=== PATIENT | female | born 1990 | race Caucasian/White ===

== ENCOUNTER 2016-07-04 18:10 | Emergency (ER) | payer OTHER ==
[2016-07-04] MEDS ORDERED: Sodium Chloride 0.9% 1000 ML 1,000 ML IV STA ×2 (19:01→20:54)
[2016-07-04] MEDS ORDERED: TORAdol 30 mg Injection IV ONE (19:01)
[2016-07-04] MEDS ORDERED: BENADRYL 50 MG/ML IV ONE (19:01)
[2016-07-04] MEDS ORDERED: PROVENTIL 2.5 MG/3 ML NEB IH ONE ×2 (19:05→19:41)
--- NOTE | 2016-07-04 19:05 | ERPHSYRPT ---
- History of Present Illness Source: patient, family (father) Patient Subjective Stated Complaint: PT REPORTS COUGH-SINUS PRESSURE-SINUS DRAINAGE-ALLL OVER BODY ACHES BEGINNING 2 MONTHS-STATES SHE HAS CHILLS-PT PLACED ON ANTIBIOTICS 2 DAYS AGO Triage Nursing Assessment: PT PALE WARM ET [id number] NONLABORED- INTERMITTANT LIGHT COUGH NOTED THROUGHOUT TRIAGE-DENIES DIFFICULTY WITH URINATION OR BOWELS DENIES N/V/D Severity: moderate Hx Tetanus, Diphtheria Vaccination/Date Given: Yes Hx Influenza Vaccination/Date Given: Yes Hx Pneumococcal Vaccination/Date Given: No Immunizations Up to Date: Yes <SUMIT GARCIA - Last Filed: 07/04/16 19:02> <ROSSY ANNA - Last Filed: 07/04/16 20:03> - History of Present Illness Time Seen by Provider: 07/04/16 18:53 Physician History: CC: fever Hx:25 y/o healthy patient of Dr Jc. She has rhinorrhea, cough, myalgias , aches, and feels bad. [place]roquois like bronchospasm yesterday. She has a son with similar illness. No V/D. No rash. She saw [facility] and was placed on abtx, she thinks omnicef. (SUMIT GARCIA) Allergies/Adverse Reactions: No Known Drug Allergies Allergy (Verified 07/04/16 18:33) Home Medications: Control 1 implant IM UD 07/04/16 [History] - Review of Systems Constitutional: Fever, Chills, Fatigue, Malaise, Weakness Eyes: No Symptoms Ears, Nose, & Throat: Nose Congestion, Throat Pain Respiratory: Cough Abdominal/Gastrointestinal: No Vomiting, No Diarrhea Skin: No Rash Neurological: Headache All Other Systems: Reviewed and Negative <SUMIT GARCIA - Last Filed: 07/04/16 19:02> - Past Medical History Pertinent Past Medical History: Yes Psycho-Social History: Depression - Past Surgical History Past Surgical History: No - Social History Smoking Status: Former smoker Exposure to second hand smoke: Yes Drug Use: none Patient Lives Alone: No - Female History Hx Last Menstrual Period: IMPLANT <SUMIT GARCIA - Last Filed: 07/04/16 19:02> - Physical Exam General Appearance: alert, thin Eye Exam: bilateral eye: PERRL, EOMI Ear Exam: bilateral ear: TM normal Nasal Exam: normal inspection Throat Exam: normal, tonsillar exudate Neck Exam: normal inspection, non-tender, supple Cardiovascular/Respiratory Exam: normal breath sounds, regular rate/rhythm, heart sounds normal Abdominal Exam: non-tender, soft Neurologic Exam: alert, oriented x 3, cooperative Skin Exam: warm, dry, No rash SpO2 Interpretation: normal SpO2: 100 Oxygen Delivery: Room Air <JOESSUMIT Leggett - Last Filed: 07/04/16 19:02> - Course Nursing assessment & vital signs reviewed: Yes <SUMIT GARCIA - Last Filed: 07/04/16 19:02> <SUMIT GARCIA - Last Filed: 07/04/16 19:02> - Progress Counseled pt/family regarding: lab results, diagnosis, need for follow-up, rad results <ROSSY ANNA - Last Filed: 07/04/16 20:03> - Progress Progress Note: 07/04/16 19:04 This is likely viral syndrome. She feels poorly despite her meds. She wants to have treatments and testing. REport to Dr Anna for further care and disposition. (SUMIT GARCIA) 07/04/16 20:01 patient is feeling much better, all lab results discussed they are all normal with in range (ROSSY ANNA) <SUMIT GARCIA - Last Filed: 07/04/16 19:02> - Departure Time of Disposition: 20:02 Departure Disposition: Home Critical Care Time: No <ROSSY ANNA - Last Filed: 07/04/16 20:03> - Departure Clinical Impression: Viral upper respiratory infection Condition: Stable Referrals: APRYL JC MD [Primary Care Provider] - Instructions: Viral Upper Respiratory Infection -- Adult Additional Instructions: UPPER RESPIRATORY INFECTIONS 1. The signs and symptoms of a cold may last up to 10 days. These illnesses are due to viruses which are not treatable with antibiotics. 2. The following suggestions can aid in recovery and to minimize symptoms: A. Increase fluid intake. B. Acetaminophen or Ibuprofen as directed. C. Avoid smoking environments as this will increase the risk of developing pneumonia. D. For children, may use a cool mist vaporizer in the child's room. 3. Contact your Family Physician if you note: A. Persisten fever >103 for more than 3 days B. Breathing difficulty C. Productive cough of yellow/green sputum D. Illness greater than 7 days E. Persistent vomiting F. Stiff neck Please follow the instructions given to you. Please take your medication as prescribed if given. If symptoms recur or get worse, come back to the emergency room if you cannot reach your primary care physician, or call your primary care physician for an appointment. Again if your symptoms get worse, come back to the emergency room. Thanks for visiting emergency room, and let us take care of you.
[2016-07-04 19:22] LABS: BASOPHIL % 0.1 % (0.0-0.4); Eosinophil % 0.1 % (0.00-5.0); Granulocytes % 74.2 % (36.0-66.0); Mean Corpuscular Hemoglobin 29.9 pg (26-32); Mean Platelet Volume 10.1 fl (6-9.5); Monocytes % 10.6 % (0.0-12.0); Platelet Count 201 K/mm3 (150-450); Red Blood Count 4.01 M/mm3 (4.1-5.4); Red Cell Distribution Width 12.3 % (11.5-14.0); White Blood Count 9.1 K/mm3 (4.0-10.5)
[2016-07-04] MEDS ORDERED: Sodium Chloride 0.9% 1000 ML 1,000 ML ONE ×2 (19:25→20:55)
[2016-07-04] MEDS ORDERED: TORAdol 30 mg Injection ONE (19:25)
[2016-07-04] MEDS ORDERED: BENADRYL 50 MG/ML ONE (19:25)
[2016-07-04 19:45] LABS: ALBUMIN 3.8 g/dL (3.4-5.0); ALKALINE PHOSPHATASE 82 U/L (46-116); ANION GAP 16.1 MEQ/L (5-15); BILIRUBIN,TOTAL 0.4 mg/dL (0.2-1.0); BLOOD UREA NITROGEN 11 mg/dL (9-20); CHLORIDE 99 mEq/L (98-107); Carbon Dioxide 23.3 mEq/L (21-32); Glucose 77 MG/DL (70-110); Potassium 3.5 mEq/L (3.5-5.1); SGOT/AST 17 U/L (15-37); SGPT/ALT 11 U/L (12-78); SODIUM 135 mEq/L (136-145); Total Protein 8.1 gm/dL (6.4-8.2)
[2016-07-04] MEDS ORDERED: TYLENOL EXTRA STRENGTH 500 MG PO STA (20:55)
[2016-07-04] MEDS ORDERED: TYLENOL EXTRA STRENGTH 500 MG ONE (21:00)
[2016-07-04 21:52] VITALS: O2SAT 98
[2016-07-04 22:39] VITALS: BP 114/70; PULSE 109
--- NOTE | 2016-07-05 08:42 | XRAY ---
Indication: Cough. Comparison: None PA/lateral chest demonstrates normal heart, lungs, and bony thorax.
== END 2016-07-04 22:20 | disposition home or self-care (01) ==
LOC: ED 18:10
DX: J06.9 Acute upper respiratory infection, unspecified (principal); B34.9 Viral infection, unspecified
CPT/HCPCS: 36000; 36415; 71020; 80053; 84703; 85025; 87070; 87430; 87631; 94640; 96360; 96365; 96375; 99283; J1200; J1885

== ENCOUNTER 2023-10-29 05:18 | Emergency (ER) | payer OTHER ==
[2023-10-29 05:32] VITALS: TEMP 97.7
--- NOTE | 2023-10-29 05:53 | ERPHSYRPT ---
- History of Present Illness Time Seen by Provider: 10/29/23 05:40 Historian: patient Exam Limitations: no limitations Patient Subjective Stated Complaint: vomiting, diarrhea, LLQ pain Triage Nursing Assessment: pt ambulatory from wheelchair to cot by self without assistance, pt alert and oriented x3, pt pale, continously moaning, pt c/o LLQ pain since 0330 and vomiting and diarrhea since yesterday, last BM was today, pt refused to auscultate bowel sounds Physician History: Patient a 33-year-old female presents to emergency department for evaluation of left lower quadrant abdominal pain. Patient states she awoke with the pain today at approximately 3:30 AM. Patient states pain is similar to the pain experienced during a urinary tract infection. Patient advises that her symptoms actually started yesterday with nausea vomiting and diarrhea. Patient is nauseous. Pain described as an ache that is localized to the left lower quadrant. Pain tends to radiate towards her back. Symptoms are constant. Symptoms are moderate in intensity. Movement and palpation to the left lower quadrant per reproduces pain. Significant other at bedside. They voiced no other complaints or concerns at this time. Portions of this note were created with voice recognition technology. There may be grammatical, spelling, punctuation or sound alike errors Timing/Duration: yesterday Activities at Onset: none Quality: aching Abdominal Pain Onset Location: LLQ Pain Radiation: no radiation Severity of Pain-Max: moderate Severity of Pain-Current: moderate Modifying Factors: Improves With: nothing Associated Symptoms: denies symptoms Previous symptoms: no prior history Allergies/Adverse Reactions: No Known Drug Allergies Allergy (Verified 10/29/23 05:24) Home Medications: Control 1 implant IM UD 07/04/16 [History] Venlafaxine HCl [Effexor Xr] 75 mg PO DAILY 10/29/23 [History] Hx Tetanus, Diphtheria Vaccination/Date Given: Yes Hx Influenza Vaccination/Date Given: Yes Hx Pneumococcal Vaccination/Date Given: No Travel Risk - International Travel Have you traveled outside of the country in past 3 weeks: No - Emerging Infectious Disease Are you exhibiting symptoms associated with any current EIDs: Yes Symptoms: Abdominal Pain, Diarrhea, Vomitting - Review of Systems Constitutional: No Symptoms, No Fever, No Chills Eyes: No Symptoms Ears, Nose, & Throat: No Symptoms Respiratory: No Symptoms, No Cough, No Dyspnea Cardiac: No Symptoms, No Chest Pain, No Edema, No Syncope Abdominal/Gastrointestinal: No Symptoms, No Abdominal Pain, No Nausea, No Vomiting, No Diarrhea Genitourinary Symptoms: No Symptoms, No Dysuria Musculoskeletal: No Symptoms, No Back Pain, No Neck Pain Skin: No Symptoms, No Rash Neurological: No Symptoms, No Dizziness, No Focal Weakness, No Sensory Changes Psychological: No Symptoms Endocrine: No Symptoms Hematologic/Lymphatic: No Symptoms Immunological/Allergic: No Symptoms All Other Systems: Reviewed and Negative - Past Medical History Pertinent Past Medical History: Yes Neurological History: No Pertinent History ENT History: No Pertinent History Cardiac History: No Pertinent History Respiratory History: No Pertinent History Endocrine Medical History: No Pertinent History Musculoskeletal History: No Pertinent History GI Medical History: No Pertinent History History: No Pertinent History Psycho-Social History: Depression Female Reproductive Disorders: No Pertinent History - Past Surgical History Past Surgical History: No Neuro Surgical History: No Pertinent History Cardiac: No Pertinent History Respiratory: No Pertinent History Gastrointestinal: No Pertinent History Genitourinary: No Pertinent History Musculoskeletal: No Pertinent History Female Surgical History: No Pertinent History - Female History Hx Last Menstrual Period: unk Hx Now: No - Social History Smoking Status: Former smoker Exposure to second hand smoke: Yes Drug Use: none Patient Lives Alone: No - Nursing Vital Signs Nursing Vital Signs: Initial Vital Signs Temperature 97.7 F 10/29/23 05:25 Pulse Rate 64 10/29/23 05:25 Respiratory Rate 18 10/29/23 05:25 Blood Pressure 150/98 10/29/23 05:25 O2 Sat by Pulse Oximetry 100 10/29/23 05:25 Pain Scale Pain Intensity 8 - Physical Exam General Appearance: no apparent distress, alert Eye Exam: PERRL/EOMI, eyes nml inspection Ears, Nose, Throat Exam: normal ENT inspection, pharynx normal, moist mucous membranes Neck Exam: normal inspection, non-tender, supple, full range of motion Respiratory Exam: normal breath sounds, lungs clear, airway intact, No respiratory distress Cardiovascular Exam: regular rate/rhythm, normal heart sounds, normal peripheral pulses Gastrointestinal/Abdomen Exam: soft, other (Tenderness to palpation left lower quadrant. Overlying soft tissue intact. No signs of trauma), No tenderness, No mass Back Exam: normal inspection, normal range of motion, No CVA tenderness, No vertebral tenderness Extremity Exam: normal inspection, normal range of motion, pelvis stable Neurologic Exam: alert, oriented x 3, cooperative, normal mood/affect, nml cerebellar function, sensation nml, No motor deficits Skin Exam: normal color, warm, dry Lymphatic Exam: No adenopathy SpO2 Interpretation: normal SpO2: 98 O2 Delivery: Room Air - Course Nursing assessment & vital signs reviewed: Yes Ordered Tests: Active Orders 24 hr Category Date Time Status IV Insertion STAT Care 10/29/23 05:46 Active ABDOMEN AND PELVIS W/0 CONTRAS [CT] Stat Exams 10/29/23 05:46 Ordered CBC W DIFF Stat Lab 10/29/23 06:10 Completed CMP Stat Lab 10/29/23 06:10 Completed HCG QUALITATIVE, SERUM Stat Lab 10/29/23 06:10 Completed LIPASE Stat Lab 10/29/23 06:10 Completed TROPONIN Q4H Lab 10/29/23 06:10 Received TROPONIN Q4H Lab 10/29/23 10:00 Ordered TROPONIN Q4H Lab 10/29/23 14:00 Ordered UA W/RFX UR CULTURE Stat Lab 10/29/23 05:46 Ordered Medication Summary Generic Name Dose Route Start Last Admin Trade Name Freq PRN Reason Stop Dose Admin Sodium Chloride 1,000 mls @ 999 mls/hr 10/29/23 05:53 10/29/23 05:56 Sodium Chloride 0.9% 1000 Ml IV 10/29/23 06:53 999 mls/hr .Q1H1M STA Administration Discontinued Medications Generic Name Dose Route Start Last Admin Trade Name Freq PRN Reason Stop Dose Admin Sodium Chloride Confirm 10/29/23 05:54 Sodium Chloride 0.9% 1000 Ml Administered 10/29/23 05:55 Dose 1,000 mls @ ud .ROUTE .STK-MED ONE Ketorolac Tromethamine 30 mg 10/29/23 05:46 10/29/23 05:56 Ketorolac Tromethamine 30 Mg/Ml Inj IV 10/29/23 05:47 30 mg STAT ONE Administration Ketorolac Tromethamine Confirm 10/29/23 05:54 Ketorolac Tromethamine 30 Mg/Ml Inj Administered 10/29/23 05:55 Dose 30 mg .ROUTE .STK-MED ONE Ondansetron HCl 4 mg 10/29/23 05:49 10/29/23 05:56 Ondansetron Hcl 4 Mg/2 Ml Vial IV 10/29/23 05:50 4 mg STAT ONE Administration Ondansetron HCl Confirm 10/29/23 05:54 Ondansetron Hcl 4 Mg/2 Ml Vial Administered 10/29/23 05:55 Dose 4 mg .ROUTE .STK-MED ONE Lab/Rad Data: Laboratory Result Diagrams 10/29/23 06:10 10/29/23 06:10 Laboratory Results 10/29/23 10/29/23 10/29/23 Range/Units 06:10 06:10 06:10 WBC (4.0-10.5) x10^3/uL RBC (4.1-5.4) x10^6/uL Hgb (12.0-16.0) g/dL Hct (35-47) % MCV (78-100) fL MCH (26-32) pg MCHC (32-36) g/dL RDW (11.5-14.0) % Plt Count (150-450) x10^3/uL MPV (7.5-11.0) fL Gran % (36.0-66.0) % Immature Gran % (Auto) (0.00-0.4) % Nucleat RBC Rel Count (0.00-0.1) % Eos # (Auto) (0-0.5) x10^3/uL Immature Gran # (Auto) (0.00-0.03) x10^3u/L Absolute Lymphs (auto) (1.0-4.6) x10^3/uL Absolute Monos (auto) (0.0-1.3) x10^3/uL Absolute Nucleated RBC (0.00-0.01) x10^3u/L Lymphocytes % (24.0-44.0) % Monocytes % (0.0-12.0) % Eosinophils % (0.00-5.0) % Basophils % (0.0-0.4) % Absolute Granulocytes (1.4-6.9) x10^3/uL Basophils # (0-0.4) x10^3/uL Sodium 137 (135-145) mmol/L Potassium 5.0 (3.5-5.1) mmol/L Chloride 108 H (98-107) mmol/L Carbon Dioxide 22 (22-30) mmol/L Anion Gap 11.9 (5-15) MEQ/L BUN 12 (7-17) mg/dL Creatinine 0.83 (0.52-1.04) mg/dL Estimated GFR 96.6 ML/MIN Glucose 160 H (74-106) mg/dL Calcium 9.5 (8.4-10.2) mg/dL Total Bilirubin 0.70 (0.2-1.3) mg/dL AST 22 (14-36) U/L ALT 15 (0-35) U/L Alkaline Phosphatase 69 (38-126) U/L Troponin I < 0.012 (0.000-0.033) ng/mL Serum Total Protein 8.2 (6.3-8.2) g/dL Albumin 4.8 (3.5-5.0) g/dL Lipase 75 (23-300) U/L Serum HCG, Qual NEGATIVE (NEGATIVE) 10/29/23 Range/Units 06:10 WBC 14.7 H (4.0-10.5) x10^3/uL RBC 4.43 (4.1-5.4) x10^6/uL Hgb 13.8 (12.0-16.0) g/dL Hct 40.6 (35-47) % MCV 91.6 (78-100) fL MCH 31.2 (26-32) pg MCHC 34.0 (32-36) g/dL RDW 11.9 (11.5-14.0) % Plt Count 310 (150-450) x10^3/uL MPV 10.3 (7.5-11.0) fL Gran % 88.0 H (36.0-66.0) % Immature Gran % (Auto) 0.6 H (0.00-0.4) % Nucleat RBC Rel Count 0.0 (0.00-0.1) % Eos # (Auto) 0.01 (0-0.5) x10^3/uL Immature Gran # (Auto) 0.09 H (0.00-0.03) x10^3u/L Absolute Lymphs (auto) 0.98 L (1.0-4.6) x10^3/uL Absolute Monos (auto) 0.66 (0.0-1.3) x10^3/uL Absolute Nucleated RBC 0.00 (0.00-0.01) x10^3u/L Lymphocytes % 6.7 L (24.0-44.0) % Monocytes % 4.5 (0.0-12.0) % Eosinophils % 0.1 (0.00-5.0) % Basophils % 0.1 (0.0-0.4) % Absolute Granulocytes 12.90 H (1.4-6.9) x10^3/uL Basophils # 0.02 (0-0.4) x10^3/uL Sodium (135-145) mmol/L Potassium (3.5-5.1) mmol/L Chloride (98-107) mmol/L Carbon Dioxide (22-30) mmol/L Anion Gap (5-15) MEQ/L BUN (7-17) mg/dL Creatinine (0.52-1.04) mg/dL Estimated GFR ML/MIN Glucose (74-106) mg/dL Calcium (8.4-10.2) mg/dL Total Bilirubin (0.2-1.3) mg/dL AST (14-36) U/L ALT (0-35) U/L Alkaline Phosphatase (38-126) U/L Troponin I (0.000-0.033) ng/mL Serum Total Protein (6.3-8.2) g/dL Albumin (3.5-5.0) g/dL Lipase (23-300) U/L Serum HCG, Qual (NEGATIVE) - Progress Progress: improved Progress Note: 33-year-old female presents emergency department for evaluation of left lower quadrant pain. Pain started this morning at 3:30 AM. Physical exam reveals tenderness to palpation left lower quadrant. Laboratory workup reveals a leukocytosis of 14.7. Patient has yet to produce urine. Urinalysis not available. CT scan completed. Results pending. Is currently the change of shift. Patient endorsed to incoming physician Dr. Morse who will make final disposition. Patient's pain has significantly improved. She is currently resting comfortably and declined additional pain medication. Significant other at bedside. They voiced no other complaints or concerns at this time. Portions of this note were created with voice recognition technology. There may be grammatical, spelling, punctuation or sound alike errors Complexity problem addressed is moderate acute complicated. No critical care time. Complex of data reviewed and analyzed is moderate. Test ordered test reviewed results analyzed and correlated clinically with history and physical exam. Risk of complication and or risk of morbidity/mortality patient management is moderate. Vital stable. Time spent to disposition patient approximately 15 minutes. Plan of care established for shared decision making. No social determinants of health present impede follow-up. Portions of this note were created with voice recognition technology. There may be grammatical, spelling, punctuation or sound alike errors 10/29/23 06:46 Counseled pt/family regarding: lab results, diagnosis, need for follow-up, rad results - Departure Departure Disposition: Home Clinical Impression: Abdominal pain, Leukocytosis Condition: Stable Critical Care Time: No Referrals: IOANA NUNEZ NP [Primary Care Provider] - Follow up/PCP as directed Additional Instructions: Discharge/Care Plan LATOYARONEYYUMIKO HE was seen on 10/29/23 in the Emergency Room. The patient was counseled regarding Diagnosis,Lab results, Imaging studies, need for follow up and when to return to the Emergency Room. Prescriptions given: Discharge Note I have spoken with the patient and/or caregivers. I have explained the patient's condition, diagnosis and treatment plan based on the information available to me at this time. I have answered the patient's and/or caregiver's questions and a ddressed any concerns. The patient and/or caregivers have as good understanding of the patient's diagnosis, condition and treatment plan as can be expected at this point. The vital signs have been stable. The patient's condition is stable and appropriate for discharge from the emergency department. The patient will pursue further outpatient evaluation with the primary care physician or other designated or consulting physician as outlined in the discharge instructions. The patient and/or caregivers are agreeable to this plan of care and follow-up instructions have been explained in detail. The patient and/or caregivers have received these instruction. The patient/and or caregivers are aware that any significant change in condition or worsening of symptoms should prompt an immediate return to this or the closest emergency department or call 911.
[2023-10-29] MEDS ORDERED: TORAdol 30 mg Injection ONE (05:54)
[2023-10-29] MEDS ORDERED: Zofran 4 MG/2 ML VIAL ONE ×2 (05:54→09:57)
[2023-10-29] MEDS ORDERED: Sodium Chloride 0.9% 1000 ML 1,000 ML ONE (05:54)
[2023-10-29] MEDS: Sodium Chloride 0.9% 1000 ML 1,000 ML IV STA (05:56)
[2023-10-29] MEDS: Zofran 4 MG/2 ML VIAL IV ONE ×2 (05:56→09:59)
[2023-10-29] MEDS: TORAdol 30 mg Injection IV ONE (05:56)
[2023-10-29 06:16] LABS: BASOPHIL % 0.1 % (0.0-0.4); Basophil (Absolute #) 0.02 x10^3/uL (0-0.4); Eosinophil % 0.1 % (0.00-5.0); Eosinophil (Absolute #) 0.01 x10^3/uL (0-0.5); Hematocrit 40.6 % (35-47); Hemoglobin 13.8 g/dL (12.0-16.0); IMMATURE GRAN # 0.09 x10^3u/L (0.00-0.03); IMMATURE GRAN % 0.6 % (0.00-0.4); Lymphocyte (Absolute #) 0.98 x10^3/uL (1.0-4.6); Lymphocytes % 6.7 % (24.0-44.0); Mean Cell Volume 91.6 fL (78-100); Mean Corpuscular Hemoglobin 31.2 pg (26-32); Mean Platelet Volume 10.3 fL (7.5-11.0); Monocyte (Absolute #) 0.66 x10^3/uL (0.0-1.3); Monocytes % 4.5 % (0.0-12.0); Platelet Count 310 x10^3/uL (150-450); Red Blood Count 4.43 x10^6/uL (4.1-5.4); Red Cell Distribution Width 11.9 % (11.5-14.0); White Blood Count 14.7 x10^3/uL (4.0-10.5)
[2023-10-29 06:28] LABS: HCG SERUM TEST NEGATIVE (NEGATIVE)
[2023-10-29 06:30] LABS: ALBUMIN 4.8 g/dL (3.5-5.0); ANION GAP 11.9 MEQ/L (5-15); BILIRUBIN,TOTAL 0.7 mg/dL (0.2-1.3); Calcium 9.5 mg/dL (8.4-10.2); Creatinine 1 0.83 mg/dL (0.52-1.04); EST GLOMERULAR FILTRATION RATE 96.6 ML/MIN; Total Protein 8.2 g/dL (6.3-8.2)
[2023-10-29] MEDS ORDERED: Sodium Chloride 0.9% 500 ML 500 ML IV ONE (08:09)
[2023-10-29] MEDS: Sodium Chloride 0.9% 500 ML 500 ML IV ONE (08:10)
--- NOTE | 2023-10-29 08:25 | XRAY ---
CLINICAL HISTORY: pain COMPARISON: None. TECHNIQUE: Multiple axial sections of the CT scan of the abdomen and pelvis were carried out without non-ionic IV contrast enhancement. Coronal and Sagittal reformations were also acquired. One of the following dose reduction techniques was utilized for this exam: Automated exposure control, adjustment of the mA and/or kV according to patient size, and use of iterative reconstruction. FINDINGS: The subcentimeter obstructing calculus was noted at the junction of proximal and mid left ureter measuring 2.9 mm causing Minimal to mild proximal Hydroureter And hydronephrosis. Tiny subcentimeter nonobstructing calculus was noted at the upper pole of the Left kidney measuring Less than 3 mm. At least 2 nonobstructing calculus were noted at the lower calyx of the right kidney with cortical scarring Measuring 3.9mm and 4.1 mm respectively. Urinary bladder appears unremarkable. The liver is normal in size. No focal mass was seen. Intra and extra-hepatic biliary ducts are not dilated. Gallbladder appears normal. No evidence of radio-opaque calculus, wall thickening, or pericholecystic fluid. The spleen appears normal. No evidence of focal mass was seen. Pancreas appears normal. No evidence of mass lesion was noted. Both adrenal glands appear normal. No discrete lesion was noted. The uterus appears normal. Appendix is unremarkable. A suggestion of bilateral follicular ovarian cyst would recommend sonographic correlation. Small and large bowel loops grossly appear normal. No abnormal wall thickness or dilatation was noted. No significant lymphadenopathy was seen. No evidence of ascites or mesenteric fat stranding was noted. On appropriate lung window settings, the bases of the lungs appear unremarkable. On bone window settings, no significant bony abnormality was noted. IMPRESSION: 1. An obstructing calculus was noted At the junction of the proximal and Mid left ureter causing minimal To mild hydroureter and hydronephrosis with adjacent minimal inflammatory changes. 2. Subcentimeter nonobstructing renal calculi noted. 3. A suggestion of bilateral ovarian follicular cyst, would recommend clinical and sonographic correlation. [facility] ER was called at [phone] at 6:28 AM ACCOUNT ENGINEER, 10/29/2023 and results were verbally communicated to the Yahir Skinner. Electronically Signed by: Brandon Barriga MD. (10/29/2023 07:35:39 EDT)
[2023-10-29 09:51] LABS: Appearance Cloudy (Clear); Bacteria Rare /HPF (None Seen); Bilirubin Negative (Negative); Blood Large (Negative); Epithelial Cells Few /HPF (None Seen); Glucose, Urine Negative (Negative); Ketones 40 (Negative); Leukocyte Esterase Small (Negative); Nitrite Negative (Negative); Protein,Urine Dip 100 (Negative); RBC >100 /HPF (0-5); Specific Gravity 1.025 (1.005-1.030)
[2023-10-29] MEDS ORDERED: MORPHINE SULFATE 4 MG INJ ONE (09:57)
[2023-10-29] MEDS: MORPHINE SULFATE 4 MG INJ IV ONE (10:01)
[2023-10-29 10:02] LABS: ADD URINE CULTURE? YES (NO)
[2023-10-29 10:03] LABS: Budding Yeast Rare /HPF (None Seen)
[2023-10-29] MEDS ORDERED: ROCEPHIN 2 GM/100 ML NACL 2 GM/100 ML IVPB IV ONE (10:48)
[2023-10-29] MEDS: ROCEPHIN 2 GM/100 ML NACL 2 GM/100 ML IVPB IV ONE (10:49)
[2023-10-29 11:26] VITALS: RESP 17
[2023-10-29 12:06] VITALS: BP 106/58; PULSE 53; O2SAT 97
[2023-10-29] MEDS ORDERED: NORCO 5/325 MG ONE (12:29)
[2023-10-29] MEDS: NORCO 5/325 MG PO ONE (12:30)
== END 2023-10-29 12:45 | disposition home or self-care (01) ==
LOC: ED 05:18
DX: N13.2 Hydronephrosis with renal and ureteral calculous obstruction (principal); N39.0 Urinary tract infection, site not specified; R10.32 Left lower quadrant pain; D72.829 Elevated white blood cell count, unspecified; R11.0 Nausea; Z79.899 Other long term (current) drug therapy
CPT/HCPCS: 36000; 36415; 74176; 80053; 81001; 83690; 84484; 84703; 85025; 87086; 96365; 96374; 96375; 96376; 99284; J0696; J1885; J2270; J2405; A9270-GY

== ENCOUNTER 2023-11-24 11:40 | Emergency (ER) | payer OTHER ==
[2023-11-24 11:58] VITALS: TEMP 96.1
[2023-11-24] MEDS ORDERED: Zofran 4 MG/2 ML VIAL ONE (12:05)
[2023-11-24] MEDS ORDERED: Sodium Chloride 0.9% 1000 ML 1,000 ML ONE (12:05)
[2023-11-24] MEDS ORDERED: TORAdol 30 mg Injection ONE (12:05)
[2023-11-24] MEDS: TORAdol 30 mg Injection IV ONE (12:08)
[2023-11-24] MEDS: Sodium Chloride 0.9% 1000 ML 1,000 ML IV SCH (12:08)
[2023-11-24] MEDS ORDERED: Flomax 0.4 MG ONE (12:08)
[2023-11-24] MEDS: Zofran 4 MG/2 ML VIAL IV ONE (12:09)
[2023-11-24] MEDS ORDERED: MORPHINE SULFATE 2 MG INJ ONE ×2 (12:14→12:39)
[2023-11-24] MEDS: MORPHINE SULFATE 2 MG INJ IV ONE ×2 (12:14→12:40)
--- NOTE | 2023-11-24 12:14 | ERPHSYRPT ---
- History of Present Illness Time Seen by Provider: 11/24/23 12:13 Historian: patient Exam Limitations: no limitations Patient Subjective Stated Complaint: right sided flank pain that radiates to the RLQ Triage Nursing Assessment: Pt brought self to the ER, hypertensive, rates pain as 10, sudden onset right sided flank pain that radiates to the RLQ, N&V, hx of kidney stones, appears to be in moderate pain Physician History: The patient, with a history of urinary tract infections and kidney stones, presents with sudden onset right flank pain. They describe the pain as severe, likening it to being hit by a 'Mal truck.' They had a similar episode a month ago, during which two stones were identified, one in the ureter and one in the kidney measuring 2.4 mm. The ureteral stone was presumed to have passed spontan eously, and no intervention was performed for the renal stone. They were supposed to follow up with a urologist, but they never received a call for an appointment. The patient denies any abdominal surgeries, nausea, vomiting, diarrhea, fevers, chills, and hematuria. They report tenderness to palpation in the right flank. Timing/Duration: today Activities at Onset: rest Quality: sharpness, stabbing Abdominal Pain Onset Location: RLQ, flank Pain Radiation: RLQ, flank Severity of Pain-Max: severe Severity of Pain-Current: severe Modifying Factors: Worsens With: movement, palpation, position Associated Symptoms: diaphoresis, loss of appetite, nausea, vomiting, No fever/ chills Previous symptoms: same symptoms as today Allergies/Adverse Reactions: No Known Drug Allergies Allergy (Verified 11/24/23 20:35) Home Medications: Venlafaxine HCl [Effexor Xr] 75 mg PO DAILY 10/29/23 [History] Hx Tetanus, Diphtheria Vaccination/Date Given: Yes Hx Influenza Vaccination/Date Given: Yes Hx Pneumococcal Vaccination/Date Given: No Travel Risk - International Travel Have you traveled outside of the country in past 3 weeks: No - Emerging Infectious Disease Are you exhibiting symptoms associated with any current EIDs: Yes Symptoms: Abdominal Pain, Vomitting - Review of Systems All Other Systems: Reviewed and Negative - Past Medical History Pertinent Past Medical History: Yes Neurological History: No Pertinent History ENT History: No Pertinent History Cardiac History: No Pertinent History Respiratory History: No Pertinent History Endocrine Medical History: No Pertinent History Musculoskeletal History: No Pertinent History GI Medical History: No Pertinent History History: No Pertinent History Psycho-Social History: Depression Female Reproductive Disorders: No Pertinent History Other Medical History: kidney stone - Past Surgical History Past Surgical History: No Neuro Surgical History: No Pertinent History Cardiac: No Pertinent History Respiratory: No Pertinent History Gastrointestinal: No Pertinent History Genitourinary: No Pertinent History Musculoskeletal: No Pertinent History Female Surgical History: No Pertinent History - Female History Hx Last Menstrual Period: 2 weeks ago Hx Now: No - Social History Smoking Status: Current every day smoker Exposure to second hand smoke: Yes Drug Use: none Patient Lives Alone: No - Social Determinants of Health Will the patient participate in the screening: Yes Do you worry about a steady place to live?: No Do you have any problems with any of the following?: No known problems In the past 12 months,have you had to go without utilities?: No Transportation Issues: No Has anyone in your support network made you feel unsafe?: No Have you or anyone in your house had to go without enough: No - Nursing Vital Signs Nursing Vital Signs: Initial Vital Signs Temperature 96.1 F 11/24/23 11:51 Pulse Rate 61 11/24/23 11:51 Blood Pressure 153/86 11/24/23 11:51 O2 Sat by Pulse Oximetry 100 11/24/23 11:51 Pain Scale Pain Intensity 6 - Physical Exam General Appearance: moderate distress Respiratory Exam: airway intact, No respiratory distress Cardiovascular Exam: tachycardia, capillary refill <2 sec Gastrointestinal/Abdomen Exam: soft, tenderness (right flank, RLQ), guarding, No distention, No mass, No rebound Back Exam: CVA tenderness (right) Neurologic Exam: alert, oriented x 3, cooperative Skin Exam: normal color, warm SpO2 Interpretation: normal SpO2: 100 O2 Delivery: Room Air - Course Nursing assessment & vital signs reviewed: Yes - CT Exams Abdomen/Pelvis CT Interpretation: Tele-radiologist Report, Other (5mm stone left ureter with mild hydro, 2 non obstructing stones right ureter) Ordered Tests: Medication Summary Discontinued Medications Generic Name Dose Route Start Last Admin Trade Name Freq PRN Reason Stop Dose Admin Droperidol 1.25 mg 11/24/23 12:59 11/24/23 13:01 Droperidol 5 Mg/2 Ml Vial IV 11/24/23 13:00 1.25 mg STAT ONE Administration Droperidol Confirm 11/24/23 13:00 Droperidol 5 Mg/2 Ml Vial Administered 11/24/23 13:01 Dose 5 mg .ROUTE .STK-MED ONE Sodium Chloride 1,000 mls @ 999 mls/hr 11/24/23 12:15 11/24/23 13:09 Sodium Chloride 0.9% 1000 Ml IV 11/24/23 13:15 Infused .Q1H1M SAM Infusion Sodium Chloride Confirm 11/24/23 12:05 Sodium Chloride 0.9% 1000 Ml Administered 11/24/23 12:06 Dose 1,000 mls @ ud .ROUTE .STK-MED ONE Ketorolac Tromethamine 30 mg 11/24/23 12:04 11/24/23 12:08 Ketorolac Tromethamine 30 Mg/Ml Inj IV 11/24/23 12:05 30 mg STAT ONE Administration Ketorolac Tromethamine Confirm 11/24/23 12:05 Ketorolac Tromethamine 30 Mg/Ml Inj Administered 11/24/23 12:06 Dose 30 mg .ROUTE .STK-MED ONE Morphine Sulfate 2 mg 11/24/23 12:12 11/24/23 12:14 Morphine Sulfate 2 Mg/Ml Inj IV 11/24/23 12:13 2 mg STAT ONE Administration Morphine Sulfate Confirm 11/24/23 12:14 Morphine Sulfate 2 Mg/Ml Inj Administered 11/24/23 12:15 Dose 2 mg .ROUTE .STK-MED ONE Morphine Sulfate 2 mg 11/24/23 12:37 11/24/23 12:40 Morphine Sulfate 2 Mg/Ml Inj IV 11/24/23 12:38 2 mg STAT ONE Administration Morphine Sulfate Confirm 11/24/23 12:39 Morphine Sulfate 2 Mg/Ml Inj Administered 11/24/23 12:40 Dose 2 mg .ROUTE .STK-MED ONE Ondansetron HCl 4 mg 11/24/23 12:07 11/24/23 12:09 Ondansetron Hcl 4 Mg/2 Ml Vial IV 11/24/23 12:08 4 mg STAT ONE Administration Ondansetron HCl Confirm 11/24/23 12:05 Ondansetron Hcl 4 Mg/2 Ml Vial Administered 11/24/23 12:06 Dose 4 mg .ROUTE .STK-MED ONE Tamsulosin HCl 0.4 mg 11/24/23 12:08 11/24/23 12:55 Tamsulosin Hcl 0.4 Mg Cap PO 11/24/23 12:09 0.4 mg DAILY STA Administration Tamsulosin HCl Confirm 11/24/23 12:08 Tamsulosin Hcl 0.4 Mg Cap Administered 11/24/23 12:09 Dose 0.4 mg .ROUTE .STK-MED ONE Lab/Rad Data: Laboratory Result Diagrams 11/24/23 12:00 11/24/23 12:00 Laboratory Results 11/24/23 11/24/23 11/24/23 Range/Units 14:23 12:00 12:00 WBC (3.98-10.04) x10^3/uL RBC (3.93-5.22) x10^6/uL Hgb (11.2-15.7) g/dL Hct (34.1-44.9) % MCV (79.4-94.8) fL MCH (25.6-32.2) pg MCHC (32.2-35.5) g/dL RDW (11.7-14.4) % Plt Count (182-369) x10^3/uL MPV (9.4-12.3) fL Gran % (34.0-71.1) % Immature Gran % (Auto) (0.001-0.429) % Nucleat RBC Rel Count (0.00-0.2) % Eos # (Auto) (0.04-0.36) x10^3/uL Immature Gran # (Auto) (0.001-0.031) x10^3u/L Absolute Lymphs (auto) (1.18-3.74) x10^3/uL Absolute Monos (auto) (0.24-0.86) x10^3/uL Absolute Nucleated RBC (0.00-0.012) x10^3u/L Lymphocytes % (19.3-51.7) % Monocytes % (4.7-12.5) % Eosinophils % (0.7-5.8) % Basophils % (0.1-1.2) % Absolute Granulocytes (1.56-6.13) x10^3/uL Basophils # (0.01-0.08) x10^3/uL Sodium 140 (135-145) mmol/L Potassium 3.3 L (3.5-5.1) mmol/L Chloride 108 H (98-107) mmol/L Carbon Dioxide 22 (22-30) mmol/L Anion Gap 12.7 (5-15) MEQ/L BUN 9 (7-17) mg/dL Creatinine 0.60 (0.52-1.04) mg/dL Estimated GFR 123.0 ML/MIN Glucose 104 (74-106) mg/dL Calcium 9.4 (8.4-10.2) mg/dL Total Bilirubin 0.40 (0.2-1.3) mg/dL AST 21 (14-36) U/L ALT 18 (0-35) U/L Alkaline Phosphatase 60 (38-126) U/L Serum Total Protein 7.7 (6.3-8.2) g/dL Albumin 4.5 (3.5-5.0) g/dL Serum HCG, Qual NEGATIVE (NEGATIVE) Urine Color Yellow (Yellow) Urine Appearance Cloudy A (Clear) Urine pH 6.0 (4.6-8.0) Ur Specific [place] >=1.030 A (1.005-1.030) Urine Protein 30 (Negative) Urine Glucose (UA) Negative (Negative) mg/dL Urine Ketones >=160 A (Negative) Urine Blood Large A (Negative) Urine Nitrite Negative (Negative) Urine Bilirubin Negative (Negative) Urine Urobilinogen 1.0 A (0.2) mg/dL Ur Leukocyte Esterase Trace A (Negative) U Hyaline Cast (Auto) 3-5 A (0-2) /LPF Urine Microscopic RBC 51-100 A (0-5) /HPF Urine Microscopic WBC 3-5 (0-5) /HPF Ur Epithelial Cells Moderate A (None Seen) /HPF Urine Bacteria Rare A (None Seen) /HPF Urine Culture Reflexed YES (NO) 11/24/23 Range/Units 12:00 WBC 8.8 (3.98-10.04) x10^3/uL RBC 4.30 (3.93-5.22) x10^6/uL Hgb 13.3 (11.2-15.7) g/dL Hct 39.2 (34.1-44.9) % MCV 91.2 (79.4-94.8) fL MCH 30.9 (25.6-32.2) pg MCHC 33.9 (32.2-35.5) g/dL RDW 12.1 (11.7-14.4) % Plt Count 298 (182-369) x10^3/uL MPV 10.7 (9.4-12.3) fL Gran % 60.2 (34.0-71.1) % Immature Gran % (Auto) 0.2 (0.001-0.429) % Nucleat RBC Rel Count 0.0 (0.00-0.2) % Eos # (Auto) 0.06 (0.04-0.36) x10^3/uL Immature Gran # (Auto) 0.02 (0.001-0.031) x10^3u/L Absolute Lymphs (auto) 2.77 (1.18-3.74) x10^3/uL Absolute Monos (auto) 0.62 (0.24-0.86) x10^3/uL Absolute Nucleated RBC 0.00 (0.00-0.012) x10^3u/L Lymphocytes % 31.6 (19.3-51.7) % Monocytes % 7.1 (4.7-12.5) % Eosinophils % 0.7 (0.7-5.8) % Basophils % 0.2 (0.1-1.2) % Absolute Granulocytes 5.27 (1.56-6.13) x10^3/uL Basophils # 0.02 (0.01-0.08) x10^3/uL Sodium (135-145) mmol/L Potassium (3.5-5.1) mmol/L Chloride (98-107) mmol/L Carbon Dioxide (22-30) mmol/L Anion Gap (5-15) MEQ/L BUN (7-17) mg/dL Creatinine (0.52-1.04) mg/dL Estimated GFR ML/MIN Glucose (74-106) mg/dL Calcium (8.4-10.2) mg/dL Total Bilirubin (0.2-1.3) mg/dL AST (14-36) U/L ALT (0-35) U/L Alkaline Phosphatase (38-126) U/L Serum Total Protein (6.3-8.2) g/dL Albumin (3.5-5.0) g/dL Serum HCG, Qual (NEGATIVE) Urine Color (Yellow) Urine Appearance (Clear) Urine pH (4.6-8.0) Ur Specific [place] (1.005-1.030) Urine Protein (Negative) Urine Glucose (UA) (Negative) mg/dL Urine Ketones (Negative) Urine Blood (Negative) Urine Nitrite (Negative) Urine Bilirubin (Negative) Urine Urobilinogen (0.2) mg/dL Ur Leukocyte Esterase (Negative) U Hyaline Cast (Auto) (0-2) /LPF Urine Microscopic RBC (0-5) /HPF Urine Microscopic WBC (0-5) /HPF Ur Epithelial Cells (None Seen) /HPF Urine Bacteria (None Seen) /HPF Urine Culture Reflexed (NO) - Progress Progress: improved, pain not gone completely Progress Note: Patient required several meds to control pain. She was found to have a 5mm obstructing stone in her ureter with mild left hydro. She also has 3 other smaller stones in her left and right kidney. Patient was given Flomax, Toradol, Morphine and Droperidol. No UTI on UA. Will send [place] and Flomax to pharmacy. Counseled pt/family regarding: lab results, diagnosis, need for follow-up, rad results Medical Desision Making - Diagnostic Testing Diagnostic test were ordered, analyzed, and reviewed by me: Yes Radiological Interpretation: Interpreted by me, Reviewed by me, Teleradiologist Report - Risk of complications The pt has a mod risk of morbidity or mortality based on: Need for prescription drug management - Departure Departure Disposition: Home Clinical Impression: Bilateral nephrolithiasis, Hydronephrosis due to obstruction of ureter Condition: Good Critical Care Time: No Referrals: IOANA NUNEZ NP [Primary Care Provider] - Follow up/PCP as directed YAJAIRA HARVEY DO [NON-STAFF PHY W/O PRIVILEGES] - Follow up/PCP as directed Instructions: Kidney Stones (DC) Prescriptions: Tamsulosin HCl 0.4 mg [Flomax 0.4 MG] 0.4 mg PO DAILY 14 Days #14 cap Hydrocodone/Acetaminophen [Hydrocodone-Acetamin 10-325 mg] 1 each PO Q4H PRN 3 Days #18 tablet MDD 6 PRN Reason: Pain
[2023-11-24 12:22] LABS: Absolute Neutrophil Ct (ANC) 5.27 x10^3/uL (1.56-6.13); BASOPHIL % 0.2 % (0.1-1.2); Basophil (Absolute #) 0.02 x10^3/uL (0.01-0.08); Eosinophil % 0.7 % (0.7-5.8); Eosinophil (Absolute #) 0.06 x10^3/uL (0.04-0.36); Hematocrit 39.2 % (34.1-44.9); Hemoglobin 13.3 g/dL (11.2-15.7); IMMATURE GRAN # 0.02 x10^3u/L (0.001-0.031); IMMATURE GRAN % 0.2 % (0.001-0.429); Lymphocyte (Absolute #) 2.77 x10^3/uL (1.18-3.74); Lymphocytes % 31.6 % (19.3-51.7); Mean Cell Volume 91.2 fL (79.4-94.8); Mean Corpuscular Hemoglobin 30.9 pg (25.6-32.2); Mean Corpuscular Hgb Concent. 33.9 g/dL (32.2-35.5); Mean Platelet Volume 10.7 fL (9.4-12.3); Monocyte (Absolute #) 0.62 x10^3/uL (0.24-0.86); Monocytes % 7.1 % (4.7-12.5); Neutrophil % 60.2 % (34.0-71.1); Platelet Count 298 x10^3/uL (182-369); Red Cell Distribution Width 12.1 % (11.7-14.4); White Blood Count 8.8 x10^3/uL (3.98-10.04)
[2023-11-24 12:43] LABS: HCG SERUM TEST NEGATIVE (NEGATIVE)
[2023-11-24 12:44] LABS: ALBUMIN 4.5 g/dL (3.5-5.0); ANION GAP 12.7 MEQ/L (5-15); BILIRUBIN,TOTAL 0.4 mg/dL (0.2-1.3); Calcium 9.4 mg/dL (8.4-10.2); Creatinine 1 0.6 mg/dL (0.52-1.04); Potassium 3.3 mmol/L (3.5-5.1); Total Protein 7.7 g/dL (6.3-8.2)
[2023-11-24] MEDS: Flomax 0.4 MG PO STA (12:55)
--- NOTE | 2023-11-24 13:25 | XRAY ---
Indication: Abdomen/right flank pain. Multiple contiguous axial images obtained through the abdomen and pelvis without contrast using renal stone protocol. Comparison: October 29, 2023 Lung bases clear again with incidental small right base calcified granuloma. Heart not enlarged. Left mid ureter demonstrates 2 new [id number] micro-calculi measuring 5 mm and 3 mm approximately L4 level. Mild hydronephrosis favors partial obstructive uropathy. Right kidney again demonstrates 2 nonobstructing micro-calculi. No renal calculus or evidence for obstructive uropathy on the left. Noncontrasted stomach and bowel loops appear nonobstructed with normal appendix. No free fluid/air. Remaining liver, gallbladder, pancreas, spleen, adrenal glands, urinary bladder, uterus, and aorta are unremarkable for noncontrast exam. Impression: 2 new right mid ureter micro-calculi producing partial obstruction as detailed. Again additional nonobstructing right renal micro-calculi.
[2023-11-24 13:43] VITALS: O2SAT 100
[2023-11-24 14:09] VITALS: PULSE 69; RESP 21
[2023-11-24 14:31] LABS: Appearance Cloudy (Clear); Bacteria Rare /HPF (None Seen); Bilirubin Negative (Negative); Blood Large (Negative); Epithelial Cells Moderate /HPF (None Seen); Glucose, Urine Negative (Negative); Ketones >=160 (Negative); Leukocyte Esterase Trace (Negative); Nitrite Negative (Negative); Protein,Urine Dip 30 (Negative); RBC 51-100 /HPF (0-5); Specific Gravity >=1.030 (1.005-1.030)
[2023-11-24 14:33] LABS: ADD URINE CULTURE? YES (NO)
[2023-11-24 14:44] VITALS: BP 117/79
== END 2023-11-24 14:48 | disposition home or self-care (01) ==
LOC: ED 11:40
DX: N13.2 Hydronephrosis with renal and ureteral calculous obstruction (principal); Z87.442 Personal history of urinary calculi; R10.9 Unspecified abdominal pain; Z79.891 Long term (current) use of opiate analgesic; Z79.899 Other long term (current) drug therapy; Z72.0 Tobacco use
CPT/HCPCS: 36000; 36415; 74176; 80053; 81001; 84703; 85025; 87086; 96374; 96375; 96376; 99284; J1885; J2270; J2405; A9270-GY

== ENCOUNTER 2023-11-24 20:28 | Emergency (ER) | payer OTHER ==
[2023-11-24 20:47] VITALS: RESP 18; TEMP 97.1
--- NOTE | 2023-11-24 21:18 | ERPHSYRPT ---
- History of Present Illness Time Seen by Provider: 11/24/23 21:18 Historian: patient Exam Limitations: no limitations Patient Subjective Stated Complaint: pt states that she was in here today for a kidney stone. pt states that she has taken 2 norcos with no relief Triage Nursing Assessment: pt ambulated into the er; pt is axo x4; c/o pain; pt states 7/10 pain to rt back and rt abd; hx kidney stone; active bowel sounds in all quads; c/o nausea, denies vomiting or diarrhea; skin PDW; abrasion to forehead; no respiratory distress present; hypertensive Physician History: The patient presents with persistent pain from a 5mm obstructing kidney stone in her right ureter, which they rate as a seven to eight on a scale of ten. Despite attempts to manage the pain with PO [place], it has remained constant and has prevented them from resting. The patient's discomfort has not improved with the current medication regimen. Timing/Duration: today Activities at Onset: rest Quality: sharpness, stabbing, throbbing Abdominal Pain Onset Location: RLQ, flank Pain Radiation: groin Severity of Pain-Max: severe Severity of Pain-Current: severe Modifying Factors: Improves With: nothing. Worsens With: movement, palpation, urinating Associated Symptoms: back, loss of appetite, nausea, vomiting, No fever/chills Previous symptoms: same symptoms as today Allergies/Adverse Reactions: No Known Drug Allergies Allergy (Verified 11/24/23 20:35) Home Medications: Venlafaxine HCl [Effexor Xr] 75 mg PO DAILY 10/29/23 [History] Hx Tetanus, Diphtheria Vaccination/Date Given: Yes Hx Influenza Vaccination/Date Given: Yes Hx Pneumococcal Vaccination/Date Given: No Immunizations Up to Date: No Travel Risk - International Travel Have you traveled outside of the country in past 3 weeks: No - Emerging Infectious Disease Are you exhibiting symptoms associated with any current EIDs: Yes Symptoms: Abdominal Pain, Vomitting - Review of Systems All Other Systems: Reviewed and Negative - Past Medical History Pertinent Past Medical History: Yes Neurological History: No Pertinent History ENT History: No Pertinent History Cardiac History: No Pertinent History Respiratory History: No Pertinent History Endocrine Medical History: No Pertinent History Musculoskeletal History: No Pertinent History GI Medical History: No Pertinent History History: No Pertinent History Psycho-Social History: Depression Female Reproductive Disorders: No Pertinent History Other Medical History: kidney stone - Past Surgical History Past Surgical History: No Neuro Surgical History: No Pertinent History Cardiac: No Pertinent History Respiratory: No Pertinent History Gastrointestinal: No Pertinent History Genitourinary: No Pertinent History Musculoskeletal: No Pertinent History Female Surgical History: No Pertinent History - Female History Hx Now: No - Social History Smoking Status: Current every day smoker Exposure to second hand smoke: Yes Drug Use: none Patient Lives Alone: No - Social Determinants of Health Will the patient participate in the screening: Yes Do you worry about a steady place to live?: No Do you have any problems with any of the following?: No known problems In the past 12 months,have you had to go without utilities?: No Transportation Issues: No Has anyone in your support network made you feel unsafe?: No Have you or anyone in your house had to go without enough: No - Nursing Vital Signs Nursing Vital Signs: Initial Vital Signs Temperature 97.1 F 11/24/23 20:36 Pulse Rate 54 L 11/24/23 20:36 Respiratory Rate 18 11/24/23 20:36 Blood Pressure 157/89 11/24/23 20:36 O2 Sat by Pulse Oximetry 99 11/24/23 20:36 Pain Scale Pain Intensity [Right Back] 7 Pain Intensity 7 - Physical Exam General Appearance: mild distress Gastrointestinal/Abdomen Exam: soft, tenderness (RLQ, LLQ), guarding, No distention, No mass, No rebound Back Exam: CVA tenderness (right) SpO2: 96 - Course Nursing assessment & vital signs reviewed: Yes Ordered Tests: Medication Summary Discontinued Medications Generic Name Dose Route Start Last Admin Trade Name Cathy PRN Reason Stop Dose Admin Morphine Sulfate 4 mg 11/24/23 21:29 11/24/23 21:47 Morphine Sulfate 4 Mg/Ml Injection IM 11/24/23 21:30 4 mg STAT ONE Administration Morphine Sulfate Confirm 11/24/23 21:46 Morphine Sulfate 4 Mg/Ml Injection Administered 11/24/23 21:47 Dose 4 mg .ROUTE .STK-MED ONE - Progress Progress: improved Progress Note: Patient given 4mg IM Morphine in ED this evening. This helped control her pain. I will send PO Toradol to take as needed in between [place] doses. Patient will f/u with urology. Counseled pt/family regarding: diagnosis, need for follow-up Medical Desision Making - Diagnostic Testing Diagnostic test were ordered, analyzed, and reviewed by me: No - Risk of complications The pt has a mod risk of morbidity or mortality based on: Need for prescription drug management - Departure Departure Disposition: Home Clinical Impression: Bilateral nephrolithiasis, Hydronephrosis due to obstruction of ureter, Intractable abdominal pain Condition: Good Critical Care Time: No Referrals: IOANA NUNEZ [employer]TE[employer] DESIGN ENGINEER [Primary Care Provider] - Follow up/PCP as directed Instructions: Kidney stones in adults Prescriptions: Ketorolac Trometh 10 mg Tab [TORAdol 10 MG TABLET] 10 mg PO TID PRN 5 Days #15 tablet PRN Reason: Pain
[2023-11-24] MEDS ORDERED: MORPHINE SULFATE 4 MG INJ ONE (21:46)
[2023-11-24] MEDS: MORPHINE SULFATE 4 MG INJ IM ONE (21:47)
[2023-11-24 22:06] VITALS: O2SAT 96
[2023-11-24 22:11] VITALS: BP 128/83; PULSE 46
== END 2023-11-24 22:18 | disposition home or self-care (01) ==
LOC: ED 20:28
DX: N13.2 Hydronephrosis with renal and ureteral calculous obstruction (principal); Z87.442 Personal history of urinary calculi; R10.9 Unspecified abdominal pain; Z79.891 Long term (current) use of opiate analgesic; Z79.899 Other long term (current) drug therapy; Z72.0 Tobacco use
CPT/HCPCS: 96372; 99283; J2270